=== PATIENT | female | born 1995 | race Caucasian/White ===

== ENCOUNTER 2019-12-02 19:55 | Emergency (ER) | payer SELFPAY ==
[~2019-12-02] VITALS: Ht 160 cm; Wt 81.6 kg
[2019-12-02] MEDS ORDERED: TETRACAINE HCL 0.5% OPHT DROP 2 ML BOTTLE ONE (20:27)
[2019-12-02] MEDS ORDERED: FLUORESCEIN SODIUM 1 MG STRIP ONE (20:27)
[2019-12-02] MEDS ORDERED: FLUORESCEIN SODIUM 1 MG STRIP OP ONE (20:30)
[2019-12-02] MEDS ORDERED: TETRACAINE HCL 0.5% OPHT DROP 2 ML BOTTLE OP ONE (20:30)
--- NOTE | 2019-12-02 20:49 | NUR ---
DR HU AT BEDSIDE FOR MSE.
--- NOTE | 2019-12-02 20:59 | NUR ---
Patient discharged to home in stable conditon. Pt accompanied by mother. Written and verbal after care instructions given. Patient verbalizes understanding of instructions. All belongings with pt. Pt ambulated out of ER with stable gait.
[2019-12-02 21:00] VITALS: BP 138/90
== END 2019-12-02 21:01 | disposition home or self-care (01) ==
LOC: ER 19:58
DX: H57.89 Other specified disorders of eye and adnexa (principal)
CPT/HCPCS: A4663